=== PATIENT | male | born 1980 | race Caucasian/White ===

== ENCOUNTER 2016-11-02 11:15 | Emergency (ER) | payer OTHER ==
[~2016-11-02] VITALS: Ht 167.6 cm; Wt 86.0 kg
[2016-11-02] MEDS ORDERED: AUGMENTIN875 MG PO (14:48)
[2016-11-02] MEDS ORDERED: NAPROXEN500 MG PO (14:48)
[2016-11-02 15:03] VITALS: BP 129/55
== END 2016-11-02 15:04 | disposition home or self-care (01) ==
LOC: EME 11:15
DX: S81.812A Laceration without foreign body, left lower leg, initial encounter (principal); W54.0XXA Bitten by dog, initial encounter; Z23 Encounter for immunization; F17.200 Nicotine dependence, unspecified, uncomplicated
CPT/HCPCS: 73590; 99281; 99284